=== PATIENT | female | born 1950 | race Caucasian/White ===

== ENCOUNTER 2025-03-16 09:33 | Outpatient (OUT) | payer MEDICARE, OTHER, SELFPAY ==
--- OUTSIDE RECORDS SUMMARY | 2025-03-16 09:40 | XMS_ITS | Clinical Summary ---
Author Organization [facility] Address [address] [place] [address] Phone Care Team Providers Care Vice President Marketing & Development Name Role Phone Unavailable Primary Care Provider Unavailabl e Social History Tobacco Use Types Packs/Day Years Used Date Smoking Tobacco: Never Assessed Comments Unknown Sex and Gender Information Value Date Recorded Sex Assigned at Not on file Legal Sex Female 8:47 PM EST Gender Identity Not on file Sexual Orientation Not on file Plan of Treatment Upcoming Encounters Date Type Department Care Team (Late st Contact Info) Description 08/16/2025 1:00 PM EST Office Visit [facility] [address] [facility] [address] [place] [address] Lavelle White, [address] [facility] [address] [place] [address] Health Maintenance Due Date Last Done Comments Bone Density Scan 1950 CT Colonography 1950 Colonoscopy 1950 Colorectal Cancer Screening 1950 FIT-DNA (Cologuard) 1950 FIT 1950 Lipid Panel 1950 Medicare Annual Wellness Vis it (AWV) 1950 Sigmoidoscopy 1950 Hepatitis C Screening 1968 DTaP/Tdap/Td Vaccines (1 - Tdap) 1972 Mammogram 1990 Pneumococcal Vaccine (1 of 1 - PCV) 2000 Zoster Vaccines (1 of 2) 2000 COVID-19 Vaccine ( - 2023-2 5 season) 2024 Influenza Vaccine (Season Ended) 2025 RSV High Risk: (Elderly (60+ ) or Population) (1 - 1-dose 75+ series) 2025 HIB Vaccines Aged Out No longer eligi ble based on patient's age to complete this topic HPV Vaccines Aged Out No longer eligi ble based on patient's age to complete this topic Hepatitis A Vaccines Aged Out No long er eligible based on patient's age to complete this topic Hepatitis B Vaccines Aged Out No long er eligible based on patient's age to complete this topic IPV Vaccines Aged Out No longer eligi ble based on patient's age to complete this topic Meningococcal Vaccine Aged Out No mi sergio eligible based on patient's age to complete this topic Rotavirus Vaccines Aged Out No longer eligible based on patient's age to complete this topic Insurance MEDICARE PART A AND B GENERIC MEDICARE SUPPLEMENT MEDICARE PART A AND B GENERIC MEDICARE SUPPLEMENT
--- OUTSIDE RECORDS SUMMARY | 2025-03-16 09:40 | XMS_ITS | Clinical Summary ---
Author Organization [facility] Address [address] [place], [place] [id number] Care Team Providers Care Brim Buster Name Role Phone Bernardo Kang MD Primary Care Provider Allergies No known active allergies Medications OMEPRAZOLE 20 mg capsule Take 20 mg by mouth as needed. 04/24/2013 Active DIOVAN 160 mg tablet Take 160 mg by mouth once daily. 04/24/2013 Active Active Problems Problem Noted Date Diagnosed Date History of lymphoma 04/28/2014 Hypertension 04/29/2013 GERD (gastroesophageal reflux disease) 3 NHL (non-Hodgkin's lymphoma) 04/27/2013 Social History Tobacco Use Types Packs/Day Years Used Date Smoking Tobacco: Former Smokeless Tobacco: Never Alcohol Use Standard Drinks/Week Comments No 0 (1 standard drink = 0.6 oz pur e alcohol) Comments No Sex and Gender Information Value Date Recorded Sex Assigned at Not on file Legal Sex Female 8:57 AM EST Gender Identity Not on file Sexual Orientation Not on file Last Filed Vital Signs Vital Sign Reading Time Taken Comments Blood Pressure 160/94 04/28/2014 9:57 AM EDT Pulse 106 04/28/2014 9:57 AM EDT Temperature 36.9 C (98.4 F) 04/28/2014 9:57 AM EDT Respiratory Rate 18 04/28/2014 9:57 AM EDT Oxygen Saturation - - Inhaled Oxygen Concentration - - Weight 84.8 kg (187 lb) 04/28/2014 9:57 AM EDT Height 166.4 cm (5' 5.51 ) 04/28/2014 9:57 AM ED T Body Mass Index 30.63 04/28/2014 9:57 AM EDT Plan of Treatment Health Maintenance Due Date Last Done Comments Anxiety Screening 1968 Depression Screening 1968 Hepatitis C Screening 1968 DTaP,Tdap,Td Vaccine (1 - Tdap) [address] Colonography 1995 Cologuard (FIT-DNA) 1995 Colonoscopy 1995 Colorectal Cancer Screening 1995 Fecal Occult Blood 1995 Lipid Screening 1995 Sigmoidoscopy 1995 Pneumococcal Vaccine: 50+ (1 of 1 - PCV) 2000 Shingrix Vaccine (1 of 2) 2000 Bone Density Screening 2015 Diabetes Screening 04/28/2017 04/28/2014, 04/29/2013 Covid-19 Vaccine ( - 2023- season) 2024 Advance Directive Discussion 10/13/2024 Influenza Vaccine (Season Ended) 2025 RSV Vaccine (1 - 1-dose 75+ series) 2025 Procedures Procedure Name Priority Date/Time Associated Diagnosis Comments COMPREHENSIVE METABOLIC PANEL Routine 04/28/2014 10:06 AM EDT NHL (non-Hodgkin's lymphoma) (HCC) from Last 3 Months or Most Recently Relevant to Health Maintenance Results * (ABNORMAL) COMP METABOLIC PANEL (04/28/2014 10:06 AM EDT) Protein, Total 6.7 6.0 - 8.4 g/dL [facility] Albumin 4.8 3.5 - 5.0 g/dL [facility] Calcium 10.0 8.5 - 10.5 mg/dL [facility] Bilirubin, Total 0.2 0.0 - 1.5 mg/dL [facility] Alkaline Phosphatase 108 40 - 150 U/L [facility] AST 28 7 - 40 U/L [facility] Glucose 106(H) 65 - 100 mg/dL [facility] BUN 16 8 - 25 mg/dL [facility] Creatinine 0.68(L) 0.70 - 1.40 mg/dL [facility] Sodium 140 132 - 148 mmol/L [facility] Potassium 4.6 3.5 - 5.0 mmol/L [facility] Chloride 103 98 - 110 mmol/L [facility] CO2 27 23 - 32 mmol/L [facility] Anion Gap 10 0 - 15 mmol/L [facility] ALT 28 0 - 45 U/L [facility] eGFR- >60 [facility] eGFR-All Other Races >60 . [facility] Comment: eGFR (Estimated GFR) Units of measure: mL/min/1.73 meters squared eGFR is derived from the reexpressed MDRD Study equation using the following parameters: serum creatinine, age, gender and race. The creatinine assay has been calibrated to be traceable to IDMS. An eGFR <60 mL/min/1.73m2 for >3 months is consistent with chronic kidney disease. Refer to KDOQI guidelines for clinical interpretation. Blood specimen (specimen) BLOOD SPECIMEN / Unknown 04/28/2014 10:06 AM EDT 04/28/2014 10:08 AM EDT us Marcello Shelby MD LABORATORY Final Result [facility] [address] [place] [address] from Last 3 Months or Most Recently Relevant to Health Maintenance Insurance [facility] Care Teams Brim Buster Relationship Specialty Start Date End Date Bernardo Kang MD [address] [place] [address] PCP - General Family Medicine 04/29/12
--- OUTSIDE RECORDS SUMMARY | 2025-03-16 09:40 | XMS_ITS | Clinical Summary ---
Author Organization [facility] Address [address] [place] [address] Care Team Providers Care Radio Interference Supervisor Name Role Phone Trang Carvajal MD Primary Care Provider [phone] Allergies No known active allergies Medications amLODIPine (Norvasc) 5 MG tablet Take 5 mg by mouth in the evening. 3 Active fluticasone (Flonase) 50 MCG/ACT nasal spray INSTILL 1 TO 2 SPRAYS INTRANASALLY ONCE DAILY NEEDED 3 Active losartan (Cozaar) 100 MG tablet Take 100 mg by mouth in the morning. 3 Active omeprazole (PriLOSEC) [address] capsule TAKE ONE CAPSULE BY MOUTH ONCE DAILY 30 TO 60 MINUTES BEFORE BREAKFAST 3 Active ipratropium (Atrovent) 0.03 % nasal spray INSTILL 2 SPRAYS 3 TO 4 TIMES DAILY IN EACH NOSTRIL 3 Active acetaminophen (Tylenol Extra Strength) 500 MG tablet Take 500 mg by mouth 4 Active aspirin 81 MG EC tablet Take 81 mg by mouth 4 Active atorvastatin (Lipitor) 40 MG tablet Take 40 mg by mouth at bedtime 4 Active Plavix 75 MG tablet Take 75 mg by mouth 4 Active metoprolol tartrate (Lopressor) 25 MG tablet TAKE 1/2 TABLET BY MOUTH TWICE A DAY 4 Active Active Problems No known active problems Encounters Date Type Department Care Team Description 01/13/2025 10:30 AM EDT Office Visit [facility] [address] [place] [address] Maria De Jesus Keller MD Seborrheic keratosis (Primary Dx); Personal history of malignant melanoma of skin; Actinic keratosis; Lentigines; History of basal cell carcinoma 01/13/2025 Bamboo flowsheet [facility] [address] [facility] [address] [place] [address] Maria De Jesus Keller MD 01/13/2025 Travel from Last 3 Months Family History Medical History Relation Name Comments Cancer Father Heart disease Father Cancer Maternal Grandfather Cancer Maternal Grandmother Cancer Mother Cancer Paternal Grandfather Cancer Paternal Grandmother Melanoma Neg Hx Relation Name Status Comments Father Maternal Grandfather Maternal Grandmother Mother Paternal Grandfather Paternal Grandmother Social History Tobacco Use Types Packs/Day Years Used Date Smoking Tobacco: Former Cigarettes Tobacco Cessation:Counseling Given: Not Answered Alcohol Use Standard Drinks/Week Comments Never 0 (1 standard drink = 0.6 oz pur e alcohol) caffiene none Comments Unknown Sex and Gender Information Value Date Recorded Sex Assigned at Not on file Legal Sex Female 7:09 PM EDT Gender Identity Not on file Sexual Orientation Not on file Last Filed Vital Signs Vital Sign Reading Time Taken Comments Blood Pressure 148/92 05/26/2020 12:00 PM EDT Pulse - - Temperature 36.2 C (97.1 F) 06/03/2023 11:10 AM EDT Respiratory Rate - - Oxygen Saturation - - Inhaled Oxygen Concentration - - Weight 81.6 kg (180 lb) 11/23/2024 9:05 AM EST Height 165.1 cm (5' 5 ) 11/23/2024 9:05 AM EST Body Mass Index 29.95 11/23/2024 9:05 AM EST Plan of Treatment Upcoming Encounters Date Type Department Care Team (Late st Contact Info) Description 07/26/2025 10:45 AM EDT Office Visit [facility] [address] [facility] [address] [place] [address] Maria De Jesus Keller MD [address] [facility] [address] [place] [address] Health Maintenance Due Date Last Done Comments CT Colonography 1950 FIT-DNA 1950 FIT 1950 FOBT 1950 Sigmoidoscopy 1950 Mammogram 1990 Pneumococcal Vaccine: 65+ Years (2 of 2 - PPSV23) 06/1407/06/2019 Influenza Vaccine (Season Ended) 2025 Colonoscopy 10/31/2027 10/31/2017 Colorectal Cancer Screening 10/31/2027 Procedures Procedure Name Priority Date/Time Associated Diagnosis Comments CRYOTHERAPY SKIN LESION Routine 01/14/20 10:34 AM EDT Actinic keratosis from Last 3 Months Results * Cryotherapy, skin lesion (01/13/2025 10:34 AM EDT) us Maria De Jesus Keller MD DERM PROCEDURE ORDERABLES Fin al Result from Last 3 Months Insurance MEDICARE [employer] [facility] Care Teams Radio Interference Supervisor Relationship Specialty Start Date End Date Trang Carvajal MD PCP - General Family Medicine 06/03/23
--- OUTSIDE RECORDS SUMMARY | 2025-03-16 09:40 | XMS_ITS | Encounter Summary ---
Author Organization [facility] Address [address] [place] [address] Care Team Providers Care Cytometry Technologist Name Role Phone Trang Carvajal MD Primary Care Provider Encounter Details Date Type Department Care Team ([facility] Contact Info) Description 07/14/2023 Abstract [facility] [address] [facility] [address] [place] [address] Maria De Jesus Keller MD [address] [facility] [address] [place] [address] Social History Tobacco Use Types Packs/Day Years [...] on file Sexual Orientation Not on file documented as of this encounter Plan of Treatment Upcoming Encounters Date Type Department Care Team (Late Contact Info) Description 07/26/2025 10:45 AM EDT Office Visit [facility] [address] [facility] [address] [place] [address] Maria De Jesus Keller MD [address] [facility] [address] [place] [address] documented as of this encounter Visit Diagnoses Not on filedocumented in this encounter Care Teams Cytometry Technologist Relationship Specialty Start Date End Date Trang Carvajal MD PCP - General Family Medicine 06/03/23 documented as of this encounter
--- NOTE | 2025-03-16 09:44 | MM_ITS ---
Patient Name: DEEJAY GRIDER MR#: [id number] : 1950 Exam Date: 03/16/2025 Ordering Doctor: CHRISTINE AYON RADIOLOGY REPORT PROCEDURE: MM TOMOSYNTHESIS SCREENING BI COMPARISON: MG MAMM SCREEN 3D MERLYN CAD, 12/04/2022. MG MAMM SCREEN MERLYN W CAD, 10/10/2020. MG MAMM SCREEN MERLYN W CAD, 05/17/2019. MG MAMM MERLYN SCRN W CAD DIG, 09/14/2013. INDICATIONS: Screening Calculator Name NCI Breast Cancer Risk Assessment Tool 5 Year Breast Cancer Risk 5.70% Lifetime Breast Cancer Risk 12.70% Personal Breast Cancer No Personal Ovarian Cancer No Treatments None Family Cancers Mother with breast cancer at age 60; Aunt-maternal with colon cancer at age 60. LOCATION: [facility] BREAST COMPOSITION: There are scattered areas of fibroglandular density. FINDINGS: DIAGNOSTIC CATEGORY 0--INCOMPLETE: NEED ADDITIONAL IMAGING EVALUATION. RIGHT BREAST: Increasing clustered microcalcifications are noted the in the junction of the middle and posterior depth slightly medially in the right breast. LEFT BREAST: No significant suspicious finding. RECOMMENDATIONS: ADDITIONAL MAMMOGRAPHIC VIEWS REQUIRED: RIGHT BREAST - magnified views of right breast calcifications PLEASE NOTE: A NORMAL MAMMOGRAM DOES NOT EXCLUDE THE POSSIBILITY OF BREAST CANCER. A CLINICALLY SUSPICIOUS PALPABLE LUMP SHOULD BE BIOPSIED. Dictated by: Yared Abdi MD on 03/16/2025 at 13:03 Approved by: Yared Abdi MD on 03/16/2025 at 13:08
== END 2025-03-16 09:34 | disposition home or self-care (01) ==
LOC: MAMMO 09:38
PROVIDERS: Visit Provider Nurse Practitioner Adult Health
DX: Z12.31 Encounter for screening mammogram for malignant neoplasm of breast (principal); Z80.3 Family history of malignant neoplasm of breast; Z80.0 Family history of malignant neoplasm of digestive organs; R92.8 Other abnormal and inconclusive findings on diagnostic imaging of breast
CPT/HCPCS: 77063; 77067